=== PATIENT | male | born 1955 | race Caucasian/White ===

== ENCOUNTER 2018-05-31 13:09 | Emergency (ER) | payer MEDICAID, SELFPAY ==
[2018-05-31 13:11] VITALS: BP 153/116; PULSE 96; RESP 22; TEMP 36.4; O2SAT 98; BMI 22.4
--- NOTE | 2018-05-31 13:32 | ED.VISSUMM ---
- ER Visit Summary Date of Service: 05/31/18 Chief Complaint: [] Resting detox from opioid use History of Present Illness: The patient is a 62 M [] a long history of opioid use related to multiple medical problems painful conditions such as rheumatoid arthritis multiple surgeries, he typically takes Percocet or Vicodin, no history of injection drug use, he was basically weaned off of all of his narcotic medications in December 2017 by [facility] pain management however he had these medications at home under his possession. He began reusing his medications he recently ran out using the last pill yesterday he spoke with [facility] regarding detox on and Saturday but he did not come in or Saturday for detox rather he presents today Saturday. Indicates that the [facility]all individual told him that he could be admitted Saturday through the emergency department. He has had no fever no cough no chest pain abdominal pain #6 paresthesias he feels a slightly unease as he is his last use of the narcotic pill Percocet or Vicodin was yesterday Physical Examination: [] His vital signs are within normal range is no psychomotor agitation or delirium there is no signs of active withdrawal there is no tremor or delirium no vomiting or fever his HEENT exam is unremarkable heart tones are normal the abdomen soft nontender upper lower extremities unremarkable clinically he looks well neurologically awake and alert Patient is insisting that the YEOXIN [facility]all individual called the had left instructions for his admission we checked with nursing staff there is no report of any call from [facility]all about the patient and YE[facility]all is not on-call to be contacted today, his cows score is very low as he has no vomiting normal vital signs, normal physical exam I explained with him as the nursing that he should follow-up with [facility] on Saturday and return for change in symptoms to manage his detox request Test Results: [] Emergency Department Course and Treatment: [] Treatment Plan: [] Disposition: [] Home stable Impression: [] Narcotic drug dependency requesting detox This note was generated with [employer] dictation software. It may contain incorrect words, spelling, and punctuation that were not noted in review of the chart prior to signing ED Disposition - Plan for ED Patient: Chief Complaint: Substance Abuse Referrals: [facility] Doctor,Out of [Primary Care Provider] -
--- NOTE | 2018-05-31 13:36 | ED.DCSUM_ITS ---
- ER Visit Summary Date of Service: 05/31/18 Chief Complaint: [] Resting detox from opioid use History of Present Illness: The patient is a 62 M [] a long history of opioid use related to multiple medical problems painful conditions such as rheumatoid arthritis multiple surgeries, he typically takes Percocet or Vicodin, no history of injection drug use, he was basically weaned off of all of his narcotic medications in December 2017 by [facility] pain management however he had these medications at home under his possession. He began reusing his medications he recently ran out using the last pill yesterday he spoke with [facility] regarding detox on and Saturday but he did not come in or Saturday for detox rather he presents today Saturday. Indicates that the [facility] individual told him that he could be admitted Saturday through the emergency department. He has had no fever no cough no chest pain abdominal pain #6 paresthesias he feels a slightly unease as he is his last use of the narcotic pill Percocet or Vicodin was yesterday Physical Examination: [] His vital signs are within normal range is no psychomotor agitation or delirium there is no signs of active withdrawal there is no tremor or delirium no vomiting or fever his HEENT exam is unremarkable heart tones are normal the abdomen soft nontender upper lower extremities unremarkable clinically he looks well neurologically awake and alert Patient is insisting that the [facility] individual called the had left instructions for his admission we checked with nursing staff there is no report of any call from [facility] about the patient and [facility] is not on-call to be contacted today, his cows score is very low as he has no vomiting normal vital signs, normal physical exam I explained with him as the nursing that he should follow-up with [facility] on Saturday and return for change in symptoms to manage his detox request Test Results: [] Emergency Department Course and Treatment: [] Treatment Plan: [] Disposition: [] Home stable Impression: [] Narcotic drug dependency requesting detox This note was generated with [employer] dictation software. It may contain incorrect words, spelling, and punctuation that were not noted in review of the chart prior to signing ED Disposition - Plan for ED Patient: Chief Complaint: Substance Abuse Referrals: [facility] Doctor,Out of [Primary Care Provider] -
--- NOTE | 2018-05-31 13:36 | ED.DEP ---
ED Disposition - Plan for ED Patient: Chief Complaint: Substance Abuse Instructions: ED Narcotic Abuse Referrals: [facility] Doctor,Out of [Primary Care Provider] - Additional Instructions: Follow-up with [facility] detox services on Saturday return for change in symptoms
[2018-05-31 13:49] VITALS: BP 163/109; PULSE 84; RESP 16; O2SAT 97
== END 2018-05-31 14:02 | disposition home or self-care (01) ==
LOC: ED 14:00
PROVIDERS: Emergency Provider Emergency Medicine
DX: F11.20 Opioid dependence, uncomplicated (principal); M06.9 Rheumatoid arthritis, unspecified; Z79.891 Long term (current) use of opiate analgesic
CPT/HCPCS: 99282